=== PATIENT | male | born 1985 | race Caucasian/White ===

== ENCOUNTER 2020-09-16 05:25 | Emergency (ER) | payer BC, SELFPAY ==
--- NOTE | 2020-09-16 05:31 | ED.PSYCH ---
HPI - Psych General Chief Complaint: Psychiatric Symptoms <Earlene Sandoval MD - Last Filed: 09/16/20 07:35> Stated Complaint: SI <Earlene Sandoval MD - Last Filed: 09/16/20 07:35> Time Seen by Provider: 09/16/20 05:30 <Earlene Sandoval MD - Last Filed: 09/16/20 07:35> Source: patient and EMS <Earlene Sandoval MD - Last Filed: 09/16/20 07:35> Mode of arrival: EMS <Earlene Sandoval MD - Last Filed: 09/16/20 07:35> Limitations: no limitations <Earlene Sandoval MD - Last Filed: 09/16/20 07:35> History of Present Illness HPI Narrative: Patient is a 35-year-old male with a history of prior alcohol abuse, depression, who presents for evaluation of suicidal ideation. Patient states that his girlfriend called EMS when he put a knife to his throat in an attempt to possibly kill himself. Patient states he just feels like there is nothing else to live for given his girlfriend whom he moved to the region for broke up with him this evening. Patient states he has nowhere to live nowhere to go, and is feeling very defeated. He reports prior history of suicidal ideation with hospitalization once in [place]. Patient is originally from [place]. Patient denies history of headache, chest pain, abdominal pain. No nausea or vomiting. No alcohol this morning. He denies drug use. Of note, patient's girlfriend's daughter recently tested positive for Covid. Patient denies any fever or chills tonight. <Earlene Sandoval MD - Last Filed: 09/16/20 07:35> Review of Systems Review of Systems: Narrative: CONSTITUTIONAL: Denies fever, chills, or sweats. EYES: Denies visual changes, redness, or discharge. ENT: Denies rhinorrhea, congestion, sore throat, or otalgia. CARDIOVASCULAR: Denies chest pain, palpitations, or edema. RESPIRATORY: Denies cough or dyspnea. GASTROINTESTINAL: Denies abdominal pain, nausea, vomiting, or diarrhea. GENITOURINARY: Denies dysuria or hematuria. SKIN: Denies rash or itching. MUSCULOSKELETAL: Denies back pain, joint pain, or myalgia. NEUROLOGIC: Denies headache, numbness, or weakness. PSYCHIATRIC: Reports depression and suicidal ideation <Earlene Sandoval MD - Last Filed: 09/16/20 07:35> [facility] Past Medical History Medical History: Medical History (Updated 09/16/20 @ 06:32 by Earlene Sandoval MD) Alcohol abuse Depression Suicidal ideation <Earlene Sandoval MD - Last Filed: 09/16/20 07:35> Surgical History Surgical History: Surgical History (Updated 09/16/20 @ 06:31 by Earlene Sandoval MD) H/O hand surgery <Earlene Sandoval MD - Last Filed: 09/16/20 07:35> Social History Social History: Social History (Updated 09/16/20 @ 06:32 by Earlene Sandoval MD) Smoking status: Current some day smoker Alcohol intake: current Substance use: never Gender identity (if verbalized by the patient): Male <Earlene Sandoval MD - Last Filed: 09/16/20 07:35> Exam Narrative: Exam Narrative: GENERAL: Awake, alert, conversant HEAD: Normocephalic, atraumatic. EYES: PERRLA and EOMI. ENT: Nares clear, no rhinorrhea or epistaxis. Mucous membranes moist. NECK: Supple. CHEST: No respiratory distress, breathing even and non labored HEART: Regular rate, sinus rhythm ABDOMEN:Non distended, non tender EXTREMITIES: Normal range of motion. No edema. SKIN: Warm, dry, no rash. NEURO:No focal deficits. Alert and oriented x3 <Earlene Sandoval MD - Last Filed: 09/16/20 07:35> Course Reevaluation(s) Reevaluation #1: Currently patient is asymptomatic, denying any thinking about harming herself or harming anybody else and would like to go home on the safety plan discussed with crisis. Patient looks comfortable, not in any pain or distress. <Luis Dumont MD - Last Filed: 09/16/20 15:22> Date: 09/16/20 <Luis Dumont MD - Last Filed: 09/16/20 15:22> Time: 15:15 <Luis Dumont MD - Last Filed: 09/16/20 15:22> Vital Signs Vital signs:
--- NOTE | 2020-09-16 05:40 | ECG_ITS ---
Measurements Intervals [place] Rate: 97 P: 25 GA: 124 QRS: 44 QRSD: 89 T: 21 QT: 327 QTc: 417 Interpretive Statements SINUS RHYTHM WITH SINUS ARRHYTHMIA POSSIBLE LEFT ATRIAL ENLARGEMENT INCOMPLETE RIGHT BUNDLE BRANCH BLOCK NONSPECIFIC T-WAVE ABNORMALITY- INFERIOR LEADS BASELINE ARTIFACT- V5-V6 BORDERLINE ECG Electronically Signed On 09-16-2020 9:26:50 [employer] by Leonardo Chou D.O.
[2020-09-16 05:46] VITALS: BP 134/92; PULSE 104; RESP 18; TEMP 36.6; O2SAT 98
[2020-09-16 06:29] LABS: Basophils Absolute Auto 0.1 K/mm3 (0.0-0.1); Basophils Percent Auto 0.6 % (0.2-1.2); Eosinophils Absolute Auto 0.1 K/mm3 (0-0.3); Eosinophils Percent Auto 0.4 % (0-4.4); Hematocrit 43.9 % (42.0-52.0); Hemoglobin 15.3 g/dL (14.0-18.0); Immature Granulocyte Absolute 0.09 K/mm3 (0.00-0.031); Immature Granulocyte Percent A 0.6 % (0-0.5); Lymphocytes Absolute Auto 1.39 K/mm3 (0.9-3.2); Lymphocytes Percent Auto 9.6 % (18.3-44.2); Mean Corpuscular HGB Conc 34.9 g/dl (32-36); Mean Corpuscular Hemoglobin 29.2 pg (26-34); Mean Corpuscular Volume 83.8 fl (80-100); Mean Platelet Volume 9.1 fl (7.4-10.4); Monocytes Absolute Auto 0.9 K/mm3 (0.1-0.6); Neutrophils Percent Auto 82.8 % (45.5-73.1); Platelet Count Result 359 k/mm3 (150-375); Red Blood Count 5.24 M/mm3 (4.6-6.20); White Blood Count 14.4 K/mm3 (4.5-10.0)
[2020-09-16 06:50] LABS: Add Urine Microscopic? YES; Appearance Urine Clear (Clear); Bilirubin Urine Negative (Negative); Blood Urine Negative (Negative); Color Urine Yellow (Yellow); Glucose Urine UA Negative (Negative); Ketones Urine Negative (Negative); Leukocyte Esterase Ur Negative LEU/UL (Negative); Mucus Urine Moderate /lpf; Nitrate Urine Negative (Negative); Protein Urine 2+ mg/dL (Negative); RBC Urine 0-2 /hpf (0-2); Squamous Epithelial Cell Urine Rare /hpf (Few); Urobilinogen Urine Negative mg/dL (<2.0); WBC Urine 0-3 /hpf
[2020-09-16 06:53] LABS: Specific Grav Ur 1.033 (1.001-1.035)
[2020-09-16 06:58] LABS: Alanine Aminotransferase 24 U/L (4-50); Albumin Level 4.5 g/dL (3.5-5.1); Alkaline Phosphatase 28 U/L (38-126); Anion Gap 10 mmol/L (8-16); Aspartate Amino Transferase 20 U/L (17-59); Bilirubin,Total 0.4 mg/dL (0.2-1.3); Blood Urea Nitrogen 19 mg/dL (9-20); Calcium 10.3 mg/dL (8.4-10.2); Carbon Dioxide 27 mmol/L (22-30); Chloride 103 mmol/L (98-107); Estimated CRCL calculation 63 ml/min; Estimated Glomerular Filt Rate > 60; Glucose 104 mg/dL (75-110); Potassium 3.5 mmol/L (3.4-5.0); Sodium 140 mmol/L (137-145)
[2020-09-16 07:09] LABS: Amphetamine Screen Urine Negative (Negative); Barbiturate Screen Urine Negative (Negative); Benzodiazepines Screen Urine Negative (Negative); Cannabinoid Screen Urine Positive (Negative); Cocaine Screen Urine Negative (Negative); Methadone Screen Urine Negative (Negative); Opiate Screen Urine Negative (Negative); Phencyclidine Screen Urine Negative (Negative)
[2020-09-16 07:43] VITALS: BP 114/58; PULSE 72; RESP 14; TEMP 36.7; O2SAT 99
--- NOTE | 2020-09-16 10:15 | PC.NURSE ---
speaking with poison control . They would like a tylenol and aspirin level ran on patient
--- NOTE | 2020-09-16 10:17 | PC.NURSE ---
Poison control states the half life is 3-5 hours and to watch from hypotension and bradycardia
[2020-09-16 10:28] VITALS: BP 131/91; PULSE 82; RESP 16; TEMP 36.6; O2SAT 100
[2020-09-16 10:41] LABS: Ethanol < 10 mg/dL (<10)
[2020-09-16 10:44] LABS: Acetaminophen < 10 ug/mL (10-30); Salicylate < 1.0 mg/dL (2-20)
--- NOTE | 2020-09-16 11:20 | PC.NURSE ---
patient moved to ED room 14 due to PUI status. patient was swabbed for Covid for placement but has also been exposed per patient's report. charge coordinator aware. patient moved to negative air pressure room for now. will contact crisis when all labs resulted and cleared from Poison Control.
--- NOTE | 2020-09-16 11:55 | PC.NURSE ---
spoke with poison control. updated on labs. updated on vitals. ok to transfer to inpatient psych facility.
--- NOTE | 2020-09-16 12:09 | PC.NURSE ---
spoke with Kirsten with [facility]. Delaney will be coming out to evaluate patient.
--- NOTE | 2020-09-16 13:30 | PC.NURSE ---
transit worker in with patient now.
--- NOTE | 2020-09-16 14:40 | PC.NURSE ---
patient has met with crisis. planning for possible discharge home to start outpatient treatment. provider aware.
[2020-09-16 15:39] VITALS: BP 118/78; O2SAT 100
[2020-09-17 18:35] LABS: SARS-CoV-2 RNA PCR Negative
== END 2020-09-16 15:41 | disposition home or self-care (01) ==
PROVIDERS: Emergency Medicine; Emergency Provider Emergency Medicine
DX: R45.851 Suicidal ideations (principal); Z20.828 Contact with and (suspected) exposure to other viral communicable diseases; F17.200 Nicotine dependence, unspecified, uncomplicated; R94.31 Abnormal electrocardiogram [ECG] [EKG]; I45.10 Unspecified right bundle-branch block
CPT/HCPCS: 36415; 80053; 80307; 81001; 84443; 85025; 87635; 93005; 99284; C9803; U0003